=== PATIENT | female | born 1995 | race Two or more races ===

== ENCOUNTER 2017-06-27 15:04 | Emergency (ER) | payer SELFPAY ==
[2017-06-27 16:02] LABS: Urine Appearance Clear; Urine Blood Negative (Negative); Urine Color Yellow; Urine Ketones 2+ (Negative); Urine Protein 1+(30 mg/dL) (Negative); Urine Specific Gravity 1.024 (1.010-1.030); Urine Urobilinogen Negative (Negative)
[2017-06-27 16:59] LABS: ABS Basophils 0.1 10^3/ul (0-0.2); ABS Eosinophils 0.1 10^3/ul (0-0.6); ABS Lymphocytes 1.1 10^3/ul (1.0-4.8); ABS Monocytes 0.5 10^3/ul (0-0.8); ABS Neutrophils 6.5 10^3/ul (1.5-7.7); ABS Nucleated RBC 0 10^3/ul; Eosinophil % 1.2 % (0-6); Hematocrit 42 % (35-47); Hemoglobin 14.3 g/dl (12.0-16.0); Lymphocyte % 12.8 % (25-47); Mean Corpuscular HGB Conc 34 g/dl (31-36); Mean Corpuscular Hemoglobin 28 pg (27-31); Mean Corpuscular Volume 84 fL (80-97); Mean Platelet Volume 8.2 um3 (7.4-10.4); Nucleated Red Blood Cells % 0; Platelet Count 309 10^3/ul (150-450); Red Blood Count 5.07 10^6/ul (4.0-5.4); Red Cell Distribution Width 14 % (10.5-15); White Blood Count 8.3 10^3/ul (3.5-10.8)
[2017-06-27 17:10] LABS: EGFR Non-African American 107.8 (>60)
--- NOTE | 2017-06-27 21:40 | ED ---
Jean Michel Elizabeth, scribed for Christiano Turner on 06/27/17 at 1614 . Psychiatric Complaint - HPI Summary HPI Summary: Patient is a 21 year old female presenting to the ED with suicidal ideations that started today. Per triage note, she sent concerning text messages to her friend, who called 911. Patient was brought in by the police. The patient denies pain anywhere. Patient reports that she has been seeing a therapist and has recently been diagnosed with depression. - History Of Current Complaint Chief Complaint: EDMentalHealth Time Seen by Provider: 06/27/17 15:25 Hx Obtained From: Patient Onset/Duration: Lasting Hours, Still Present Character: Depressed Aggravating Factor(s): Recent Stress Related History: Negative For: Prior Psychiatric Issues Has Suicidal: Reports: Thoughts Recent Stressor(s): Midterms - Allergies/Home Medications Allergies/Adverse Reactions: Allergies Allergy/AdvReac Type Severity Reaction Status Date / Time No Known Allergies Allergy Verified 06/27/17 15:15 Home Medications: Home Medications Norgestrel-Ethinyl Estradiol [Cryselle-28] 1 tab PO DAILY 06/27/17 [History Confirmed 06/27/17] PMH/Surg Hx/FS Hx/Imm Hx Sensory History: Denies: Hx Deafness Opthamlomology History: Denies: Hx Legally Blind Psychiatric History: Reports: Hx Depression Infectious Disease History: No Infectious Disease History: Denies: Traveled Outside the [place] in Last 30 Days - Family History Known Family History: Positive: Unknown - Social History Occupation: Student Alcohol Use: Occasionally Review of Systems Negative: Epistaxis Negative: Abdominal Pain Psychological: Other - suicidal ideations Positive: Depressed All Other Systems Reviewed And Are Negative: Yes Physical Exam - Summary Physical Exam Summary: Appearance: Well appearing, no pain distress Skin: warm, dry, reflects adequate perfusion Head/face: normal Eyes: EOMI, ASHANTI ENT: normal Neck: supple, non-tender Respiratory: CTA, breath sounds present Cardiovascular: RRR, pulses symmetrical Abdomen: non-tender, soft Bowel: present Musculoskeletal: normal, strength/ROM intact Neuro: normal, sensory motor intact, A&Ox3 Psych: depressed affect Triage Information Reviewed: Yes Vital Signs On Initial Exam: Initial Vitals Temp Pulse Resp BP Pulse Ox 99.5 F 98 14 137/66 100 06/27/17 15:15 06/27/17 15:15 06/27/17 15:15 06/27/17 15:15 06/27/17 15:15 Vital Signs Reviewed: Yes Diagnostics - Vital Signs Vital Signs Temp Pulse Resp BP Pulse Ox 06/27/17 15:15 99.5 F 98 14 137/66 100 - Laboratory Lab Results: Lab Results 06/27/17 Range/Units 15:45 Urine Color Yellow Urine Appearance Clear Urine pH 7.0 (5-9) Ur Specific [place] 1.024 (1.010-1.030) Urine Protein 1+(30 mg/dl) A (Negative) Urine Ketones 2+ A (Negative) Urine Blood Negative (Negative) Urine Nitrate Negative (Negative) Urine Bilirubin Negative (Negative) Urine Urobilinogen Negative (Negative) Ur Leukocyte Esterase Negative (Negative) Urine WBC (Auto) Absent (Absent) Urine RBC (Auto) Absent (Absent) Ur Squamous Epith Cells Present A (Absent) Urine Bacteria Absent (Absent) Urine Glucose Negative (Negative) Result Diagrams: 06/27/17 16:40 06/27/17 16:40 Lab Statement: Any lab studies that have been ordered have been reviewed, and results considered in the medical decision making process. Course/Dx - Course Course Of Treatment: Patient presented to the ED with suicidal ideations. Bloodwork and UA obtained. Diagnosed with depression and suicidal ideations. Signed out to Dr. Matos pending mental health evaluation. - Differential Dx/Clinical Impression Provider Diagnosis: Depression, Suicidal ideation Discharge - Sign-Out/Discharge Documenting (check all that apply): Sign-Out Patient Signing out patient TO: Chang Matos - Discharge Plan Referrals: [facility] [Primary Care Provider] - The documentation as recorded by the Jean russo Elizabeth accurately reflects the service I personally performed and the decisions made by , Christiano Turner.
--- NOTE | 2017-06-28 09:55 | PN ---
Progress Note - Progress Note Date of Service: 06/28/17 Note: Subjective: Patient denies any complaints or concerns at this time. Reports no need for medications or additions to medical plan established for patient. Slept well. She denies any other complaints at this time and is awaiting for transfer or admission or discharge. She denies any suicidal thoughts. Denies any worsening depression. Objective: VS stable No change to current medications Alert and cooperative and resting comfortably. Appearance: WDW, comfortable, pleasant, alert Skin: Soft dry skin, no lesions. Eyes: ASHANTI, EOMI, Conjunctiva pink with no redness or exudates. Neck: Full range of motion. Pulm: Chest symmetrical expansion. No deformities on posterior chest wall. Lungs clear to auscultation and percussion, without adventitious sounds. CV: Heart soundsRRR, Normal S1 and single S2. No S3, S4, rubs, or murmurs. Musculoskeletal: ROM WNL in all extremities. No deformities noted. Neuro: A&OX3 Psych: Logical, coherent Assessment: Patient has participated in plan with compliance to medications while awaiting assessment. Dx at this time remains depression. Plan: Continue mediations as prescribed. Will continue to monitor psych behaviors and need for any medication. Will provide a patient to provider assessment within every 24 hours during stay until safe discharge/transfer/ admission plan is established.
--- NOTE | 2017-06-28 16:55 | PN ---
Subjective - Subjective Date of Service: 06/28/17 Service Type: 44160 Hosp care 35 min high complexity Subjective: Saw and evaluated Rock APARICIO for reported suicidal threats by texting a friend in the context of some interpersonal conflicts. She has been trying to minimize the threats since she was brought in by [employer]. However she acknowledges that she has been feeling depressed and anxious a lot and has just started seeng a therapist who didn't recommend to see a psychiatrist or to consider anti -depressants. She doesn't appear to be a reliable historian at this time and will need to secured on a psychiatric unit for further evaluation and psych testings. Objective - Appearance Appearance: Healthy Appearing Dysmorphic Features: No Hygiene: Normal Grooming: Well Kept - Behavior Psychomotor Activities: Normal Exhibits Abnormal Movement: No - Attitude and Relatedness Attitude and Relatedness: Superficially Cooperative Eye Contact: Fair - Speech Quality: Unpressured Latencies: Normal Quantity: Appropriate - Mood Patient's Decription of Mood: "Anxious" - Affect Observed Affect: Tense Affect Consistent with: Dysphoria - Thought Process Patient's Thought Process: Coherent, Circumstantial Thought Content: Yes Passive Wish, No Suicidal Planning, No Homicidal Ideation, No Paranoid Ideation - Sensorium Experiencing Hallucinations: No, Sensorium is Clear Type of Hallucinations: Visual: No, Auditory: No, Command: No - Level of Consciousness Level of Consciousness: Alert Orientation: Yes Intact, Yes Orientated to Time, Yes Orientated to Place, Yes Orientated to Person - Impulse Control Impulse Control: Tenuous - Insight and Judgement Insight and Judgement: Poor - Group Participation Particating in Group Activities: No - Medication Management Medication Management Adherence: No Assessment - Assessment Merits Inpatient Hospitalization: For Immediate Safety, Diagnosis Determination , Pending Safe DC Plan Clinical Impression: Unsafe for discharge and recommend inpatient hospitalization on an involuntary basis. Plan - Plan Treatment Plan: Name: ROCK WALSH Birthdate: 1995 [id number] Continued Medication Management: Consider Medication - Discharge Plan Discharge Plan: Inpatient Hospitalization
[2017-06-28] MEDS ORDERED: diPHENhydraMINE PO* 50 MG PO ONE (19:57)
--- NOTE | 2017-06-29 04:48 | ED ---
Progress - Progress Note Progress Note: in no acute distress, awaiting psychiatric reevaluation, as there are no accepting facilities currently. Signed out to AM attending. - Consult/PCP Time Called: 18:00 Course/Dx - Course Course Of Treatment: Pt accepted for admission for inpatient psychiatric treatment, awaiting placement and transfer - Diagnoses Provider Diagnoses: Depression, Suicidal ideation Discharge - Sign-Out/Discharge Documenting (check all that apply): Sign-Out Patient Signing out patient TO: Robert Moreno - Discharge Plan Condition: Stable Discharge Disposition Comment: still awaiting official psych reeval and dispo [facility]errals: [facility] [Primary Care Provider] - - Billing Disposition and Condition Condition: STABLE
--- NOTE | 2017-06-29 11:16 | PN ---
ED Flex Patient Progress Note Subjective: This is a 21 year-old F who is pending further psychiatric evaluation by psychiatrist secondary to SI . staff and patient confirms she is linked with outpatient counselor and would prefer to be discharged so she can follow up there. She admits she has a mild URI - took some cold medicine last night and slept well. Pt offers no complaints at this time - no fever, chills, nausea, vomiting, diarrhea, chest pain, shortness of breath, abdominal pain, rash, neck pain or stiffness. Objective: Vitals: Most recent vital signs documented below. General NAD, Alert and oriented x3. Heart: rrr, S1-S2, no clicks no murmurs no rubs Lungs: CTA, breathing easily, no rales, rhonchi, nor wheezing AB: Soft, positive bowel sounds, nontender to palpation integ: No rash, well perfused Psych: Pleasant, in good spirits, conversing with parents were here to visit her Assessment: 1) SI 2) URI Plan: 1) Pending psychiatrist's f/u evaluation. Will follow up daily __while in ED__ _. 2) well-controlled - No intervention necessary at this time Vital Signs Temp Pulse Resp BP Pulse Ox 98.2 F 80 16 117/62 99 06/29/17 09:54 06/29/17 09:54 06/29/17 09:54 06/29/17 09:54 06/29/17 09:54 Lab Results - Entire Visit 06/27/17 06/27/17 06/27/17 16:40 16:40 15:45 WBC 8.3 RBC 5.07 Hgb 14.3 Hct 42 MCV 84 MCH 28 MCHC 34 RDW 14 Plt Count 309 MPV 8.2 Neut % (Auto) 78.9 Lymph % (Auto) 12.8 L Wilkin % (Auto) 6.4 Eos % (Auto) 1.2 Baso % (Auto) 0.7 Absolute Neuts (auto) 6.5 Absolute Lymphs (auto) 1.1 Absolute Monos (auto) 0.5 Absolute Eos (auto) 0.1 Absolute Basos (auto) 0.1 Absolute Nucleated RBC 0 Nucleated RBC % 0 Sodium 135 Potassium 3.8 Chloride 103 Carbon Dioxide 20 L Anion Gap 12 H BUN 8 Creatinine 0.70 Est GFR ( Amer) 138.6 Est GFR (Non-Af Amer) 107.8 BUN/Creatinine Ratio 11.4 Glucose 68 L Calcium 9.6 Total Bilirubin 0.40 AST 16 ALT 10 Alkaline Phosphatase 34 Total Protein 7.8 Albumin 4.6 Globulin 3.2 Albumin/Globulin Ratio 1.4 TSH 0.78 Beta HCG, Quant < 0.60 Urine Color Yellow Urine Appearance Clear Urine pH 7.0 Ur Specific [place] 1.024 Urine Protein 1+(30 mg/dl) A Urine Ketones 2+ A Urine Blood Negative Urine Nitrate Negative Urine Bilirubin Negative Urine Urobilinogen Negative Ur Leukocyte Esterase Negative Urine WBC (Auto) Absent Urine RBC (Auto) Absent Ur Squamous Epith Cells Present A Urine Bacteria Absent Urine Glucose Negative Salicylates < 2.50 Urine Opiates Screen Acetaminophen < 15 Ur Barbiturates Screen Ur Phencyclidine Scrn Ur Amphetamines Screen U Benzodiazepines Scrn Urine Cocaine Screen U Cannabinoids Screen Serum Alcohol < 10 06/27/17 15:45 WBC RBC Hgb Hct MCV MCH MCHC RDW Plt Count MPV Neut % (Auto) Lymph % (Auto) Wil[place] % (Auto) Eos % (Auto) Baso % (Auto) Absolute Neuts (auto) Absolute Lymphs (auto) Absolute Monos (auto) Absolute Eos (auto) Absolute Basos (auto) Absolute Nucleated RBC Nucleated RBC % Sodium Potassium Chloride Carbon Dioxide Anion Gap BUN Creatinine Est GFR ( Amer) Est GFR (Non-Af Amer) BUN/Creatinine Ratio Glucose Calcium Total Bilirubin AST ALT Alkaline Phosphatase Total Protein Albumin Globulin Albumin/Globulin Ratio TSH Beta HCG, Quant Urine Color Urine Appearance Urine pH Ur Specific [place] Urine Protein Urine Ketones Urine Blood Urine Nitrate Urine Bilirubin Urine Urobilinogen Ur Leukocyte Esterase Urine WBC (Auto) Urine RBC (Auto) Ur Squamous Epith Cells Urine Bacteria Urine Glucose Salicylates Urine Opiates Screen None detected Acetaminophen Ur Barbiturates Screen None detected Ur Phencyclidine Scrn None detected Ur Amphetamines Screen None detected U Benzodiazepines Scrn None detected Urine Cocaine Screen None detected U Cannabinoids Screen Presumptive positive A Serum Alcohol
[2017-06-29 13:13] VITALS: BP 121/62
--- NOTE | 2017-06-29 13:15 | PN ---
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 Patient relates that she has been under intense stress: she had a cold, struggling to keeps her grades up, broke up with boyfriend, best friend became distant. She denies previous hospitalization, previous suicide attempt, self-injury or substance abuse. She recently started outpatient therapy. Margie maintains her readiness for discharge. She affirms she feels safe and good about being alive. She denies emotional pain or unmanageable anxiety. She avidly denies having thoughts of suicide or urges to self-harm. She does not see obstacles to routine care / therapy, or emergency help if needed again. Her therapist Shalini Light has contacted the ED on more than one occasions to advocate for her discharge back to campus as she sees her as a low lethality risk. She has offered to see Margie today at 2:00PM in the outpatient setting for follow-up. I met with her and her parents: Barronbing and Mary, they feel comfortable with her discharge from the ED. Patient has classes until then will go home to [place] to spend with parents. ] Objective: [Alert, oriented x 3, clam, full range of affect, euthymic mood, denies S/HI or A/VH, she is future-oriented and she contracts for safety if discharged. ] Assessment: [Adjustment disorder with depressed mood] Plan: [Discharge patient to parents to be driven back to . Patient instructed to follow-up with [facility], ABDULLAHI. Patient instructed to keep her appointment with Shalini Light at 2:00PN today. Patient instructed to return to ED if feeling unsafe.]
== END 2017-06-29 13:15 | disposition home or self-care (01) ==
LOC: ED 15:04
DX: F32.9 Major depressive disorder, single episode, unspecified (principal); R45.851 Suicidal ideations; J06.9 Acute upper respiratory infection, unspecified; Z32.02 Encounter for pregnancy test, result negative
CPT/HCPCS: 36415; 80053; 80307; 80320; 80329; 81003; 81015; 84443; 84702; 85025; 99283; A9270-GY; G0480